=== PATIENT | male | born 1960 | race Caucasian/White ===

== ENCOUNTER 2017-05-21 06:21 | Day surgery (SDC) | payer BC ==
[2017-05-20 11:04] LABS: HEMATOCRIT 48.7 % (42.0-54.0); MCH 30.4 pg (26.0-34.0); MCHC 34.9 g/dL (31.0-37.0); MCV 87.1 fL (80.0-100.0); MEAN PLATELET VOLUME 9.8 fL (7.4-10.4); RBC 5.59 10x6/uL (4.20-6.10); RDW 12.9 % (11.5-14.5); WBC 10.8 10x3/uL (4.8-10.8)
[~2017-05-21] VITALS: Ht 170.2 cm; Wt 83.9 kg
--- NOTE | ~2017-05-21 | OP ---
PATIENT NAME: SEBASTIÁN GRIER MEDICAL RECORD: [id number] [facility] ADMISSION DATE: SURGEON: RONI RICHARDS DO DATE OF OPERATION: 05/21/2017 PROCEDURE PERFORMED: Right shoulder arthroscopy with subacromial decompression, distal clavicle excision, mini open rotator cuff repair and biceps tenodesis. PREOPERATIVE DIAGNOSES: Right shoulder rotator cuff tear, subacromial impingement, acromioclavicular joint arthritis, and superior labrum anterior and posterior tear. POSTOPERATIVE DIAGNOSES: Right shoulder rotator cuff tear, subacromial impingement, acromioclavicular joint arthritis, and superior labrum anterior and posterior tear. INDICATIONS: Mr. Grier is a 56-year-old male, who presented to my office with right shoulder pain for quite some time. He could not sleep on it and having weakness lifting it and could not hold it out for months. I examined him and got an MRI, which showed some of the findings and diagnosis. I had a discussion with him and told him about preop and postop protocols as far as no lifting for 6-12 weeks and certainly no lifting with his shoulder of that arm, the risk of infection and risks and benefits of the procedure. He was okay with all these and including damage to nerves and vessels and bleeding. He has consented to the procedure. SURGEON: Roni Richards DO. ANESTHESIA: The patient received a block in the preoperative area. Interscalene by anesthesia, was given 900 mg of clindamycin preoperatively. COMPLICATIONS: None. BLOOD LOSS: Minimal. DESCRIPTION OF PROCEDURE: The patient was taken to the operative suite, laid in the left lateral decubitus position with the right shoulder up and put an axillary roll underneath the axilla on the left and beanbag was placed around and inflated. He was very comfortable in that position and was given a general anesthetic and LMA was placed. Once this was done, the right shoulder was prepped and draped in sterile fashion. A timeout was performed and everyone was in agreement with the correct side, site, and patient. After this, an 18-gauge spinal needle was introduced into the shoulder joint itself and insufflated with 60 mL of normal saline. The trocar was then entered after establishing posterior portals with an 11-blade scalpel and the SLAP tear was seen right away as well as good size rotator cuff tear in the supraspinatus. The subscapularis was inspected and no tear was seen in that. There were no loose bodies in the inferior joint. There was very little of glenohumeral arthritis in the joint. The anterior portal was then established and then a burner was used to do a biceps tenodesis. The trocar was then entered to inspect the subscap more thoroughly and there was not seen to be torn. However, there was quite a large tear in the supraspinatus articular side. We then entered the bursal side of the shoulder and the bursa had covered the tear. It did have a good sized spur on the anterolateral acromion, which was removed and also the AC joint with very little space and this was opened up with a bur to 7 mm resecting the distal OPERATIVE REPORT [id number] SEBASTIÁN GRIER clavicle. Once this was done, bursectomy was done. A spinal needle was put in after the scope was put back into the joint to identify the articular-sided tear. The shoulder was opened on the lateral side where the lateral portal was then established with an 11-blade scalpel. Incision was opened up with a 15 blade. Careful dissection was made down through the deltoid. The deltoid fascia was incised with scissors and then retractors were placed down to the bursa. Some more bursa was removed. Once the tear was identified in the supraspinatus and the greater tuberosity was decorticated with the shaver and then 2 anchors were placed at the articular margin of the greater tuberosity and a SpeedBridge was used. The Scorpion was used to bite through the rotator cuff and 2 lateral anchors were used to tie it down. This is a very nice repair of the cuff, was inspected. The arm was rotated internally and externally. No further tears were seen and had a nice repair. After this was done, the shoulder was irrigated thoroughly and then attention was drawn to the anterior part of the humerus. An incision was made for the biceps tenodesis site just inferior to the pec insertion. Dissection was made down to the bicep tendon, right distal rather to the bicipital groove and the humerus. They been removed with a 90-degree right angle forceps and an Allis was used to clamp onto the bicep tendon. Then, it was whipstitched with suture and the stitch was brought through a button. Once this was done, a soft tissue protector was used to drill into the humerus unicortically and then the button was put down into the humerus and the button was flipped and then the biceps was toggled down to the anterior aspect of the humerus and then a free needle was used to suture the bicep and then tied down on to that. The excess suture and excess biceps tendon was cut at that time and removed. That site was thoroughly irrigated and then closed with 2-0 Vicryl in inverted interrupted fashion and 4-0 Monocryl ran on the skin. The larger incision for the open rotator cuff repair was closed with 0 Vicryl to close the deltoid fascia very loosely with a [id number] stitch and then 2-0 Vicryl in the skin and interrupted and 4-0 Monocryl ran on the skin subcuticularly at that site. Then, the 2 portal sites, anterior and posterior were closed with a single stitch through the inverted interrupted fashion and then Dermabond was placed over each of the incision sites and then a Telfa, Tegaderm were placed over the incisions. The patient was awakened and taken to recovery in stable condition, put in a sling as well. TRANSINT:[id number] Voice Confirmation ID: [id number] DOCUMENT ID: [id number] RONI RICHARDS DO at 1146 CC: [id number] DICTATION DATE: 05/21/17 0929 REHABILITATION MANAGER: 05/21/17 1025 [facility] 05/21/[address] [id number]
[2017-05-21 05:58] VITALS: BP 164/98; Ht 170.2 cm; Wt 83.9 kg
[~2017-05-21 06:21] MED LIST: ASPIRIN325 MG PO; BAYER CHEWABLE81 MG PO; NORVASC10 MG PO
[2017-05-21] MEDS ORDERED: PERCOCET 7.5/321 TAB PO (09:21)
== END 2017-05-21 11:05 | disposition home or self-care (01) ==
LOC: D.OPS 06:21 → D.PAN 07:30 → D.OPS 07:30
PROVIDERS: Anesthesiology
DX: M75.41 Impingement syndrome of right shoulder (principal); M75.101 Unspecified rotator cuff tear or rupture of right shoulder, not specified as traumatic; M19.011 Primary osteoarthritis, right shoulder; S43.431A Superior glenoid labrum lesion of right shoulder, initial encounter; I10 Essential (primary) hypertension; Z01.812 Encounter for preprocedural laboratory examination